=== PATIENT | female | born 1990 | race Caucasian/White ===

== ENCOUNTER 2016-10-05 19:41 | Emergency (ER) | payer SELFPAY ==
[2016-10-05 20:05] LABS: Urine Bilirubin Negative (NEGATIVE); Urine Blood Negative /ul (NEGATIVE); Urine Ketone Negative (NEGATIVE); Urine Nitrite Negative (NEGATIVE); Urine Protein Negative (NEGATIVE); Urine Specific Gravity 1.015 SP.GR. (1.005-1.010); Urine Urobilinogen Normal (NORMAL)
[2016-10-05 20:13] LABS: Urine Appearance Cloudy; Urine Bacteria 1+; Urine Color Yellow; Urine RBC None Seen /hpf (0-5)
--- NOTE | 2016-10-05 21:06 | ERNOTE ---
ER Female HPI Date of Service: 10/05/16 Stated Complaint: KIDNEY STONE Time Seen by Provider: 10/05/16 21:00 Source: patient Immunizations: IMMUNIZATION HX Immunizations Up to Date Yes History of Influenza Vaccine No Hx Pneumococcal Vaccination No Allergies/Adverse Reactions: Allergies No Known Allergies Allergy (Verified 10/05/16 19:54) Home Medications: HOME MEDICATIONS Clonazepam 1 mg PO BID 10/05/16 [Last Taken Unknown] FLUoxetine HCL [Prozac] 20 mg PO DAILY 10/05/16 [Last Taken Unknown] Levothyroxine Sodium [Unithroid] 50 mcg PO DAILY 10/05/16 [Last Taken Unknown] Naproxen [Naprosyn] 500 mg PO BID PRN #60 tab 10/05/16 [Last Taken Unknown] Sulfamethoxazole/Trimethoprim [Bactrim Ds] 1 tab PO BID #28 tab 10/05/16 [Last Taken Unknown] - History of Present Illness Narrative: Pt presents to ED with c/o lower back pain that radiates to the side of abd. Pt states the pain is severe. Pt states she has urinary frequency and occasional burning sensation up the urethra. Pt states she has been feeling nauseated but no emesis. Pt denies diarrhea and constipation. Pt denies shortness of breath, chest pain, nasal congestion, sore throat. Pt states she has had this pain for about one month now. Nothing makes it better. Date (Duration): 09/04/16 Timing: Present: getting worse Review of Systems - Review of Systems Constitutional: Absent: recent illness, fever, fatigue EYE: Present: no symptoms reported. Absent: eye pain, vision changes ENT: Present: no symptoms reported. Absent: ear pain, nose congestion, nasal drainage, sore throat Respiratory: Present: no symptoms reported. Absent: shortness of breath, cough Cardiology: Present: no symptoms reported. Absent: chest pain, palpitations Gastrointestinal/Abdominal: Present: nausea. Absent: vomiting, diarrhea, constipation, abdominal pain Genitourinary: Present: frequency, pain - burning pain, dysuria. Absent: hematuria, decreased urinary output Musculoskeletal: Present: back pain - lower back pain Skin: Present: no symptoms reported. Absent: rash, dryness Neurological: Present: dizziness/light-headedness. Absent: emotional problems, headache, numbness, tingling Endocrine: Present: no symptoms reported. Absent: intolerance to heat, intolerance to cold Hematologic/Lymphatic: Present: no symptoms reported. Absent: easy bruising Psych: Present: no symptoms reported. Absent: anxiety, depressed All Other Systems: All systems neg except as marked - Patient's Past Medical History Patient History - Medical: No pertinent hx, Depression, Hypothyroidism, Kidney stone, UTI'S Patient History - Cardiac/Respiratory: No pertinent hx Patient History - Cancer: No Hx of Cancer Patient History - Surgical Procedures: No surgical history Patient History - Other: None - Social History Living Situations: home Abuse History: No History of abuse Psych History: No pertinent hx Smoking Status: Never smoker Alcohol Use: none Drug Use: none - Immunizations Immunizations Up to Date: Yes Hx Pneumococcal Vaccination: No History of Influenza Vaccine: No Physical Exam - Physical Exam General Appearance: Present: wd/wn, alert, no apparent distress Eye Exam: Normal inspection: bilateral, PERRL: bilateral, EOMI: bilateral Ears, Nose, Throat: Present: hearing grossly normal Neck: Present: normal inspection, nontender, full range of motion Respiratory: Present: no respiratory distress, normal breath sounds, no accessory muscle use, chest nontender, lungs clear. Absent: decreased breath sounds, crackles, rales, rhonchi, stridor, wheezing Cardiovascular/Chest: Present: regular rate, rhythm, no murmur, normal peripheral pulses. Absent: irregularly irregular Gastrointestinal/Abdominal: Present: normal bowel sounds, nondistended, soft, no organomegaly, tenderness - suprapubic tenderness and left lower quadrant. Absent: abnormal bowel sounds, distended, guarding, rebound Back Exam: Present: normal range of motion, no vertebral tenderness, CVA tenderness (R), CVA tenderness (L). Absent: decreased range of motion Extremity Exam: Present: normal inspection, non-tender, no edema, normal range of motion Neurological Exam: Present: alert, oriented, normal mood/affect, no motor/ sensory deficits, manager of creative services II-XII nml as tested. Absent: facial droop, motor weakness Skin Exam: Present: normal color, warm/dry. Absent: pallor, skin rash Lymphatic Exam: Present: no adenopathy ED Progress - Date and Time Seen: Date and Time: 10/05/16 21:[address] Erazo and as pt. has negative renal enzymes and positive UTI by UA feel taht pt. does not likely have renal stone but does have UTI. Will treat with ABX and Naproxen and send home. - Results and Orders Patient's Lab Results:: I have reviewed the patient's lab results. - Vital Signs Patient's Vital Signs:: I have reviewed the patient's vital signs. Vital Signs: Vital Signs 10/05/16 19:49 Temperature 36.2 C L Pulse Rate 135 H Respiratory 20 Rate Blood Pressure 142/111 O2 Sat by Pulse 96 Oximetry - Progress/Reassessment Chief Complaint: Genitourinary Problem Departure Clinical Impression: UTI (urinary tract infection) Qualifiers: Urinary tract infection type: acute pyelonephritis Qualified Code(s): N10 - Acute pyelonephritis - Departure Disposition: Home self-care Condition: Good Instructions: Flank Pain, [id number], Pyelonephritis, Adult Additional Instructions: Please follow up with primary provider in 2-3 days if no improvement. Referrals: Maksim Michaud MD [Primary Care Provider] - Prescriptions: Naproxen [Naprosyn] 500 mg PO BID PRN #60 tab PRN Reason: Pain Sulfamethoxazole/Trimethoprim [Bactrim Ds] 1 tab PO BID #28 tab
[2016-10-05] MEDS ORDERED: KETOROLAC TROMETHAMINE 60 MG/2 ML VIAL IM ONE ×2 (21:08→21:24)
[2016-10-05] MEDS ORDERED: ONDANSETRON 4 MG TAB.RAPDIS PO ONE (21:08)
[2016-10-05 21:18] LABS: Hematocrit 38.6 % (37.0-47.0); Hemoglobin 12.8 gm/dL (12.5-16.0); Mean Cell Volume 94.6 fl (78-100); Mean Corpuscular Hemoglobin 31.4 pg (27-31); Mean Corpuscular Hgb Conc 33.2 g/dl (32-36); Mean Platelet Volume 8.7 fl (6.0-9.5); Neutrophil # 4.9 K/mm3 (1.3-6.0); Neutrophil % 57.6 % (42-75.0); Platelet Count 422 K/mm3 (150-450); Red Blood Count 4.08 M/mm3 (4.2-5.4); Red Cell Distribution Width 12.6 % (11.5-14.0); White Blood Count 8.6 K/mm3 (4.0-10.5)
[2016-10-05] MEDS ORDERED: ONDANSETRON 4 MG TAB.RAPDIS ONE (21:25)
[2016-10-05 21:32] LABS: Albumin * 3.7 gm/dl (3.4-5.0); Anion Gap 14.5 mmol/L (6.8-13.8); BUN/Creatinine Ratio 13.2 (9.0-21.6); Bilirubin, Total 0.1 mg/dL (0.0-1.1); Calcium * 9.1 mg/dL (7.9-10.9); Carbon Dioxide 26.6 mmol/L (24-32.6); Potassium 4.1 mmol/L (3.4-4.6); Total Protein 8.1 gm/dL (6.2-8.2)
[2016-10-05] MEDS ORDERED: SULFAMETHOXAZOLE/TRIMETHOPRIM 1 TAB TABLET PO ONE (21:49)
[2016-10-05] MEDS ORDERED: KETOROLAC TROMETHAMINE 30 MG/ML VIAL IV ONE (21:52)
[2016-10-05] MEDS ORDERED: KETOROLAC TROMETHAMINE 30 MG/ML VIAL ONE (21:53)
[2016-10-05] MEDS ORDERED: SULFAMETHOXAZOLE/TRIMETHOPRIM 1 TAB TABLET ONE (21:53)
[2016-10-05 22:13] VITALS: BP 118/71
== END 2016-10-05 22:10 | disposition home or self-care (01) ==
LOC: ER 19:41
DX: N10 Acute pyelonephritis (principal); E03.9 Hypothyroidism, unspecified; F32.9 Major depressive disorder, single episode, unspecified

== ENCOUNTER 2017-03-16 16:55 | Emergency (ER) | payer SELFPAY ==
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
[2017-03-16] MEDS ORDERED: KETOROLAC TROMETHAMINE 60 MG/2 ML VIAL IM ONE (17:53)
[2017-03-16] MEDS ORDERED: IBUPROFEN 400 MG TABLET ONE (17:55)
[2017-03-16] MEDS ORDERED: IBUPROFEN 400 MG TABLET PO ONE (17:56)
[2017-03-16 18:14] VITALS: BP 137/88
== END 2017-03-16 18:15 | disposition home or self-care (01) ==
LOC: ER 16:55
DX: M79.1 Myalgia (principal); V49.40XA Driver injured in collision with unspecified motor vehicles in traffic accident, initial encounter; Y93.9 Activity, unspecified; Y92.410 Unspecified street and highway as the place of occurrence of the external cause; Y99.9 Unspecified external cause status